=== PATIENT | female | born 1950 | race Caucasian/White ===

== ENCOUNTER → 2021-01-17 12:02 | Outpatient (REF) | payer MEDICARE, SELFPAY | LOC: ANHLAB 12:02 | PROVIDERS: Visit Provider Nurse Practitioner | DX: C44.519 Basal cell carcinoma of skin of other part of trunk (principal) | CPT/HCPCS: 88305 ==

== ENCOUNTER → 2021-01-29 13:22 | Outpatient (REF) | payer MEDICARE, SELFPAY | LOC: ANHLAB 13:22 | PROVIDERS: Visit Provider Nurse Practitioner | DX: C44.519 Basal cell carcinoma of skin of other part of trunk (principal) | CPT/HCPCS: 88305 ==